=== PATIENT | male | born 2000 | race Caucasian/White ===

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

== ENCOUNTER 2025-07-05 23:55 | Emergency (ER) | payer OTHER, SELFPAY ==
[2025-07-06] MEDS ORDERED: HYDROcodone/Acetaminophen 5/325 mg Tablet ONE (00:11)
== END 2025-07-06 01:07 | disposition home or self-care (01) ==
LOC: ERS 23:55
DX: S93.401A Sprain of unspecified ligament of right ankle, initial encounter (principal); Z55.6 Problems related to health literacy; X50.1XXA Overexertion from prolonged static or awkward postures, initial encounter
CPT/HCPCS: 29515